=== PATIENT | female | born 1965 | race Caucasian/White ===

== ENCOUNTER → 2018-03-05 | Outpatient (CLI) | payer OTHER ==
[~2018-03-05] MED LIST: ASPIR 8181 MG PO; ATORVASTATIN CA20 MG PO; CLOPIDOGREL75 MG PO; LOSARTAN POTASS50 MG PO; METOPROLOL TART25 MG PO; VITAMIN C1000 M2 PO
--- NOTE | 2018-03-05 16:19 | Diagnostic Imaging Report ---
EXAM: CT Chest WITHOUT contrast / High Resolution INDICATION: Chest congestion, interstitial lung disease COMPARISON: None. TECHNIQUE: Chest was scanned utilizing a multidetector helical scanner without IV contrast. High Resolution technique utilized. IV CONTRAST: None COMPLICATIONS: None RADIATION DOSE: Total DLP: 1529 mGy*cm Estimated effective dose: (DLP x 0.015 x size factor) mSv CTDIvol has been reviewed. It is below the limits set by the Radiation Protocol Committee (RPC). Appropriate CT dose reduction techniques were utilized. FINDINGS: Lower Neck: No support lines or tubes. Visualized thyroid gland unremarkable. Heart and Great Vessels: The aorta and main pulmonary artery measure 33 and 24 mm. respectively. No pericardial effusion. Moderate coronary artery vascular calcifications with probable PCI LAD, poorly evaluated secondary to motion. Lymph Nodes: 11 x 5 mm level 6, 12 x 6 mm right level 2, 20 x 10 mm right level 4, 12 x 9 mm left level 4, 28 x 15 mm level 7. Probable left hilar lymph nodes, incompletely evaluated given lack of IV contrast. Lungs: Trachea and central bronchi are unremarkable. Moderate scattered peripheral bronchial wall thickening present. There is no pneumothorax or pleural effusion. Mild centrilobular and moderate to severe paraseptal emphysematous changes in the apices. Scattered mild areas of subpleural cyst are present in the mid lungs, difficult to delineate between paraseptal emphysematous change and subtle honeycombing. No significant honeycombing is identified in the lung bases, however. Scattered moderate reticulations are present. Mild groundglass opacities are scattered throughout the mid and lower lungs. Upper abdomen: Limited. Bones and Soft Tissues: No acute findings. IMPRESSION: 1. Mild centrilobular and moderate to severe paraseptal emphysematous changes in the upper lungs. 2. Scattered moderate reticular opacities with mild subpleural cystic changes predominantly in the midlungs. It is unclear whether this represents paraseptal emphysematous change or subtle honeycombing. Of note, no significant honeycombing is identified in the lung bases. Additionally, mild scattered groundglass opacities and areas of air trapping on expiratory images are present in the mid and lower lungs. Overall pattern raises question of chronic hypersensitivity pneumonitis superimposed on emphysematous changes. CPFE (Combined Pulmonary Fibrosis and Emphysema) or fibrotic NSIP could have similar imaging characteristics. Signed by: Dr. Abiel Reyna MD on 03/05/2018 4:16 PM
== END ==
LOC: CT 07:33
PROVIDERS: ATTEND Family Medicine
DX: R09.89 Other specified symptoms and signs involving the circulatory and respiratory systems (principal); R91.8 Other nonspecific abnormal finding of lung field
CPT/HCPCS: 71250

== ENCOUNTER → 2018-04-25 | Outpatient (CLI) | payer OTHER | LOC: MAMMO 12:12 | PROVIDERS: ATTEND Family Medicine | DX: Z12.31 Encounter for screening mammogram for malignant neoplasm of breast (principal) | CPT/HCPCS: 77067 ==

== ENCOUNTER → 2019-06-15 | Outpatient (CLI) | payer OTHER | LOC: MAMMO 08:31 | PROVIDERS: ATTEND Family Medicine | DX: Z12.31 Encounter for screening mammogram for malignant neoplasm of breast (principal) | CPT/HCPCS: 77067 ==

== ENCOUNTER 2019-10-04 15:45 | Observation (INO) | payer OTHER ==
[~2019-10-04] VITALS: Ht 152.4 cm; Wt 85.7 kg
[2019-10-04] MEDS ORDERED: ASPIRIN 81 MG CHEW TAB PO ONE (16:15)
[2019-10-04 16:16] LABS: BASOPHILS # (AUTO) 0.1 (0.0-0.1); BASOPHILS % 0.6 % (0.0-1.0); EOSINOPHILS # (AUTO) 0.2 (0.0-0.4); HEMATOCRIT 43.7 % (34.2-44.1); HEMOGLOBIN 14.2 g/dL (12.0-16.0); LYMPHOCYTES # (AUTO) 3.2 (1.0-3.2); LYMPHOCYTES % 39.4 % (18.0-39.1); MEAN CORPUSCULAR HEMOGLOBIN 31.7 pg (28-32); MEAN CORPUSCULAR HGB CONC 32.5 g/dL (31-35); MEAN CORPUSCULAR VOLUME 97.5 fL (81-99); MONOCYTES # (AUTO) 0.5 (0.2-0.8); MONOCYTES % 5.9 % (4.4-11.3); NEUTROPHILS # (AUTO) 4.2 (2.1-6.9); NEUTROPHILS % 51.8 % (38.7-80.0); PLATELET COUNT 261 x10e3/uL (140-360); RED BLOOD COUNT 4.48 x10e6/uL (3.6-5.1); RED CELL DISTRIBUTION WIDTH 13.7 % (11.7-14.4)
[2019-10-04 16:28] LABS: INR 0.83; PARTIAL THROMBOPLASTIN TIME 29.6 seconds (23.8-35.5); PROTHROMBIN TIME 11.9 seconds (11.9-14.5)
[2019-10-04 16:35] LABS: ALANINE AMINOTRANSFERASE 20 IU/L (0-55); ALBUMIN 3.7 g/dL (3.5-5.0); ALBUMIN/GLOBULIN RATIO 1.1 (0.8-2.0); ALKALINE PHOSPHATASE 66 IU/L (40-150); BLOOD UREA NITROGEN 13 mg/dL (7-26); BUN/CREATININE RATIO 16 (6-25); CALCIUM 9.3 mg/dL (8.4-10.2); CARBON DIOXIDE 25 mmol/L (22-29); CHLORIDE 106 mmol/L (98-107); CREATINE KINASE 151 IU/L (29-168); CREATININE, SERUM 0.82 mg/dL (0.57-1.11); EST GLOMERULAR FILTRATION RATE > 60 ML/MIN (60-); GLUCOSE 98 mg/dL (74-118); MAGNESIUM 1.9 MG/DL (1.3-2.1); SODIUM 140 mmol/L (136-145)
--- NOTE | 2019-10-04 16:54 | Emergency Department Note ---
History of Present Illnes History of Present Illness Chief Complaint: Chest Pain History of Present Illness This is a 53 year old female Patient states that she has had chest pain with shortness of breath for a few days, worse yesterday while mowing the lawn. No CP today but WALLIS persists. Patient states that she had a NC in 2010 resulting in one cardiac stent placement. Patient denies any other symptoms such as fever, cough, chills and body aches. Historian: Patient Additional Treatment FRONT MAKER: N/A Electric System Operator Required: No Onset (how long ago): day(s) (3) Location: left chest Quality: pressure Radiation: Reports non-radiation Severity: moderate Onset quality: gradual Timing of current episode: intermittent Progression: waxing and waning Chronicity: new Context: Reports other (had recent positive stress test by Dr Lieberman); Denies recent illness Relieving factors: none Exacerbating factors: other (exertion) Associated symptoms: Reports chest pain, Reports shortness of breath Treatments prior to arrival: aspirin Past Medical/Family History Physician Review I have reviewed the patient's past medical and family history. Any updates have been documented here. Past Medical History Recent Fever: No Clinical Suspicion of Infectio: No New/Unexplained Change in Ment: No Past Medical History: Hypertension, NC, Hyperlipedemia Other Medical History: lung fibrosis Past Surgical History: Appendectomy Other Surgery: Cardiac stent LAD Social History Smoking Cessation: Current every day smoker Counseling Performed: Yes Alcohol Use: Social Any Illegal Drug Use: No TB Exposure/Symptoms: No Physically hurt or threatened: No Family History Family history of heart diseas: Yes Other Last Tetanus: utd Any Pre-Existing Lines (PICC,: No Is patient up to date on immun: Yes Last Flu: utd Last Pneumovax: utd Review of Systems Review of Systems Constitutional: Reports no symptoms EENTM: Reports no symptoms Cardiovascular: Reports as per HPI, Reports chest pain Respiratory: Reports as per HPI, Reports dyspnea on exertion Gastrointestinal: Reports no symptoms Genitourinary: Reports no symptoms Musculoskeletal: Reports no symptoms Integumentary: Reports no symptoms Neurological: Reports no symptoms Psychological: Reports no symptoms Endocrine: Reports no symptoms Hematological/Lymphatic: Reports no symptoms Physical Exam Related Data Allergies: Coded Allergies: Penicillins (Verified Allergy, Unknown, RED STREAK ON ARM, 03/05/18) Uncoded Allergies: SULFA (Allergy, Unknown, 03/05/18) Triage Vital Signs Vital Signs Date Time Temp Pulse Resp B/P (MAP) Pulse Ox O2 Delivery O2 Flow Rate FiO2 10/04/19 15:47 97.3 86 18 103/67 97 Vital signs reviewed: Yes Physical Exam CONSTITUTIONAL Constitutional: Present well-developed, Present well-nourished HENT HENT: Present normocephalic, Present atraumatic, Present oropharynx clear/moist, Present nose normal HENT L/R: Present left ext ear normal, Present right ext ear normal EYES Eyes: Reports PERRL, Reports conjunctivae normal NECK Neck: Present ROM normal PULMONARY Pulmonary: Present rales (bibasilar) CARDIOVASCULAR Cardiovascular: Present regular rhythm, Present heart sounds normal, Present capillary refill normal, Present normal rate GASTROINTESTINAL Abdominal: Present soft, Present nontender, Present bowel sounds normal GENITOURINARY Genitourinary: Present exam deferred SKIN Skin: Present warm, Present dry MUSCULOSKELETAL Musculoskeletal: Present ROM normal, Present edema (trace bilateral LE's) NEUROLOGICAL Neurological: Present alert, Present oriented x 3, Present no gross motor or sensory deficits PSYCHOLOGICAL Psychological: Present mood/affect normal, Present judgement normal Results Laboratory Result Diagram: 10/04/19 1550 10/04/19 1550 Laboratory Laboratory Tests Test 10/04/19 15:50 White Blood Count 8.00 x10e3/uL (4.8-10.8) Red Blood Count 4.48 x10e6/uL (3.6-5.1) Hemoglobin 14.2 g/dL (12.0-16.0) Hematocrit 43.7 % (34.2-44.1) Mean Corpuscular Volume 97.5 fL (81-99) Mean Corpuscular Hemoglobin 31.7 pg (28-32) Mean Corpuscular Hemoglobin Concent 32.5 g/dL (31-35) Red Cell Distribution Width 13.7 % (11.7-14.4) Platelet Count 261 x10e3/uL (140-360) Neutrophils (%) (Auto) 51.8 % (38.7-80.0) Lymphocytes (%) (Auto) 39.4 % (18.0-39.1) Monocytes (%) (Auto) 5.9 % (4.4-11.3) Eosinophils (%) (Auto) 2.0 % (0.0-6.0) Basophils (%) (Auto) 0.6 % (0.0-1.0) Neutrophils # (Auto) 4.2 (2.1-6.9) Lymphocytes # (Auto) 3.2 (1.0-3.2) Monocytes # (Auto) 0.5 (0.2-0.8) Eosinophils # (Auto) 0.2 (0.0-0.4) Basophils # (Auto) 0.1 (0.0-0.1) Absolute Immature Granulocyte (auto 0.02 x10e3/uL (0-0.1) Prothrombin Time 11.9 seconds (11.9-14.5) Prothromb Time International Ratio 0.83 Activated Partial Thromboplast Time 29.6 seconds (23.8-35.5) Sodium Level 140 mmol/L (136-145) Potassium Level 4.0 mmol/L (3.5-5.1) Chloride Level 106 mmol/L (98-107) Carbon Dioxide Level 25 mmol/L (22-29) Anion Gap 13.0 mmol/L (8-16) Blood Urea Nitrogen 13 mg/dL (7-26) Creatinine 0.82 mg/dL (0.57-1.11) Estimat Glomerular Filtration Rate > 60 ML/MIN (60-) BUN/Creatinine Ratio 16 (6-25) Glucose Level 98 mg/dL (74-118) Calcium Level 9.3 mg/dL (8.4-10.2) Magnesium Level 1.9 MG/DL (1.3-2.1) Total Bilirubin 0.5 mg/dL (0.2-1.2) Aspartate Amino Transf (AST/SGOT) 17 IU/L (5-34) Alanine Aminotransferase (ALT/SGPT) 20 IU/L (0-55) Alkaline Phosphatase 66 IU/L (40-150) Creatine Kinase 151 IU/L (29-168) Total Protein 7.0 g/dL (6.5-8.1) Albumin 3.7 g/dL (3.5-5.0) Globulin 3.3 g/dL (2.3-3.5) Albumin/Globulin Ratio 1.1 (0.8-2.0) Lab results reviewed: Yes Imaging Imaging results reviewed: Yes Impressions Procedure: [id number] DX/CHEST SINGLE (PORTABLE) Exam Date: 10/04/19 Exam Time: 1625 REPORT STATUS: Signed EXAMINATION: CHEST SINGLE (PORTABLE) INDICATION: Chest pain. COMPARISON: None FINDINGS: TUBES and LINES: None. LUNGS: Lungs are well inflated. Emphysematous changes of the lungs. There are patchy opacities in the bilateral lower lung zones. PLEURA: No pleural effusion or pneumothorax. HEART AND MEDIASTINUM: The cardiomediastinal silhouette is unremarkable. There are atherosclerotic calcifications within the aorta. BONES AND SOFT TISSUES: No acute osseous lesion. Soft tissues are unremarkable. UPPER ABDOMEN: No free air under the diaphragm. IMPRESSION: Patchy lower lung zone opacities may represent pneumonia in the appropriate clinical setting. Recommend follow-up chest radiograph in 6-8 weeks to assess for resolution. Signed by: Dr. Roman Manley MD on 10/04/2019 5:04 PM Procedures 12 Lead ECG Interpretation ECG Interpretation : ECG: ECG 1 Electric System Operator: Interpreted by ED physician Date: Oct 04, 2019 Time: 15:46 Rhythm: sinus rhythm Rate: normal (81) QRS axis: normal ST segments normal: Yes T waves normal: Yes Clinical Impression: normal ECG Assessment & Plan Medical Decision Making MDM known CAD with CP/WALLIS - check CBC, CHEM'S, CARDIACS, ECG, BNP, CXR - R/O STEMI/NSTEMI, CHF, ELECTROLYTE ABNL, PNEUMONIA Reassessment Reassessment ADMIT - SPOKE WITH DR LIEBERMAN - PLANS FOR CATH TOMORROW Assessment & Plan Final Impression: (1) Unstable angina (2) Chest pain (3) Dyspnea Depart Disposition: ADMITTED Last Vital Signs Date Time Temp Pulse Resp B/P (MAP) Pulse Ox O2 Delivery O2 Flow Rate FiO2 10/04/19 16:09 98.1 77 18 103/57 99 Home Meds Reported Medications Aspirin (ASPIR 81) 81 Mg Tablet.dr, 81 MG PO DAILY 02/24/15 Ascorbic Acid (VITAMIN C) 1,000 Mg Tablet.er, 1000 MG PO DAILY 02/24/15 Atorvastatin Calcium (ATORVASTATIN CALCIUM) 20 Mg Tablet, 20 MG PO DAILY, TAB 02/24/15 Metoprolol Tartrate (METOPROLOL TARTRATE) 25 Mg Tablet, 25 MG PO DAILY, TAB 02/24/15 Clopidogrel Bisulfate (CLOPIDOGREL) 75 Mg Tablet, 75 MG PO DAILY, TAB 02/24/15 Losartan Potassium (LOSARTAN POTASSIUM) 50 Mg Tablet, 50 MG PO DAILY 02/24/15 Medications in the ED Aspirin 81 mg PRN ONCE PO ; Start 10/04/19 at 16:15; Stop 10/04/19 at 16:16; Status DC BING SHIELDS MD Oct 04, 2019 16:54
--- NOTE | 2019-10-04 17:07 | Diagnostic Imaging Report ---
EXAMINATION: CHEST SINGLE (PORTABLE) INDICATION: Chest pain. COMPARISON: None FINDINGS: TUBES and LINES: None. LUNGS: Lungs are well inflated. Emphysematous changes of the lungs. There are patchy opacities in the bilateral lower lung zones. PLEURA: No pleural effusion or pneumothorax. HEART AND MEDIASTINUM: The cardiomediastinal silhouette is unremarkable. There are atherosclerotic calcifications within the aorta. BONES AND SOFT TISSUES: No acute osseous lesion. Soft tissues are unremarkable. UPPER ABDOMEN: No free air under the diaphragm. IMPRESSION: Patchy lower lung zone opacities may represent pneumonia in the appropriate clinical setting. Recommend follow-up chest radiograph in 6-8 weeks to assess for resolution. Signed by: Dr. Roman Manley MD on 10/04/2019 5:04 PM
[2019-10-04] MEDS ORDERED: ONDANSETRON HCL INJ 2MG/ML 2ML 2 MG/ML VIAL IV PRN (17:30)
[2019-10-04] MEDS ORDERED: MORPHINE SULFATE 2 MG/ML SYR 1ML IV PRN (17:30)
[2019-10-04] MEDS ORDERED: ENOXAPARIN SODIUM INJ 100 MG/ML SYR SC NR (17:30)
[2019-10-04] MEDS ORDERED: NITROGLYCERIN 0.4 MG SUBL SL PRN (17:30)
[2019-10-04] MEDS: METOPROLOL TARTRATE 25 MG TAB PO SCH (20:07)
[2019-10-04] MEDS: FAMOTIDINE 20 MG/2 ML VIAL IV SCH (21:00)
--- NOTE | 2019-10-05 01:18 | NUR ---
Covid-19 test results negative per lab @0114
[2019-10-05 02:11] VITALS: BP 97/61
[2019-10-05 02:43] VITALS: BP 132/74
[2019-10-05 04:00] VITALS: BP 105/68
[2019-10-05] MEDS: METOPROLOL TARTRATE 25 MG TAB PO SCH ×3 (06:00→12:44)
[2019-10-05 06:46] LABS: BASOPHILS # (AUTO) 0.1 (0.0-0.1); BASOPHILS % 0.6 % (0.0-1.0); EOSINOPHILS # (AUTO) 0.2 (0.0-0.4); EOSINOPHILS % 2.6 % (0.0-6.0); HEMOGLOBIN 13.5 g/dL (12.0-16.0); LYMPHOCYTES # (AUTO) 3.9 (1.0-3.2); LYMPHOCYTES % 49.3 % (18.0-39.1); MEAN CORPUSCULAR HEMOGLOBIN 32.1 pg (28-32); MEAN CORPUSCULAR HGB CONC 32.9 g/dL (31-35); MEAN CORPUSCULAR VOLUME 97.6 fL (81-99); MONOCYTES # (AUTO) 0.4 (0.2-0.8); MONOCYTES % 5.3 % (4.4-11.3); NEUTROPHILS # (AUTO) 3.3 (2.1-6.9); NEUTROPHILS % 41.8 % (38.7-80.0); PLATELET COUNT 238 x10e3/uL (140-360); RED CELL DISTRIBUTION WIDTH 13.9 % (11.7-14.4)
[2019-10-05 07:07] LABS: ALANINE AMINOTRANSFERASE 20 IU/L (0-55); ALBUMIN 3.2 g/dL (3.5-5.0); ANION GAP 13.2 mmol/L (8-16); BLOOD UREA NITROGEN 13 mg/dL (7-26); CALCIUM 8.9 mg/dL (8.4-10.2); CARBON DIOXIDE 24 mmol/L (22-29); CHLORIDE 106 mmol/L (98-107); CHOL/HDL RATIO 5.4 (3.0-3.6); CHOLESTEROL 135 MD/DL (0-199); GLUCOSE 93 mg/dL (74-118); HDL CHOLESTEROL 25 MG/DL (40-60); POTASSIUM 4.2 mmol/L (3.5-5.1); SODIUM 139 mmol/L (136-145)
--- NOTE | 2019-10-05 07:07 | NUR ---
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
[2019-10-05 07:08] LABS: CREATINE KINASE 123 IU/L (29-168)
[2019-10-05] MEDS ORDERED: HEPARIN SOD (PORCINE) 1000 UNIT/ML 30ML ONE (07:22)
[2019-10-05] MEDS ORDERED: LIDOCAINE HCL 2% LOCAL 20 ML VIAL ONE (07:22)
[2019-10-05] MEDS ORDERED: MIDAZOLAM HCL 2 MG/2 ML VIAL ONE ×2 (07:22→07:56)
[2019-10-05] MEDS ORDERED: FENTANYL CITRATE/PF 100MCG/2 ML INJ ONE (07:22)
[2019-10-05] MEDS ORDERED: HEPARIN SOD/SOD CHLORIDE 2,000 ML ONE (07:23)
[2019-10-05] MEDS ORDERED: IOPAMIDOL 370 MG/ML 200 ML INFUS..BTL INJ ONE (07:23)
[2019-10-05] MEDS ORDERED: SODIUM CHLORIDE 0.9% 1000ML 1,000 ML ONE (07:23)
[2019-10-05] MEDS ORDERED: NITROGLYCERIN/D5W 200 MCG/ML 0 ML ONE (07:23)
[2019-10-05 07:32] LABS: ALKALINE PHOSPHATASE 54 IU/L (40-150); BUN/CREATININE RATIO 17 (6-25); CREATININE, SERUM 0.81 mg/dL (0.57-1.11); EST GLOMERULAR FILTRATION RATE > 60 ML/MIN (60-)
--- NOTE | 2019-10-05 08:20 | NUR ---
PT BACK IN ROOM AFTER PROCEDURE AWARE OF KEEPING LEG STRAIGHT TILL 1020. BP STABLE. DRESSING CL&I TO RT GROIN AREA.
--- NOTE | 2019-10-05 08:26 | History and Physical ---
CHIEF COMPLAINT: Chest pain. HISTORY OF PRESENT ILLNESS: Ms. Durand is a 53-year-old female with a history of angina. She had a stress test done as an outpatient, which showed moderate anterior apical ischemia. She was being scheduled for an outpatient heart catheterization. However, she started experiencing increasing chest pain and shortness of breath and presented to the [facility] ER. At presentation, she was hemodynamically stable. Chest pain was resolved with nitroglycerin, aspirin, and heparin. Her EKG showed new ST depression, which also resolved with her resolution of symptoms. Initial set of cardiac enzymes are negative. PAST MEDICAL HISTORY: Hypertension. SOCIAL HISTORY: The patient does not smoke or drink. ALLERGIES: PENICILLIN AND SULFA. REVIEW OF SYSTEMS: Negative except as dictated in History of Present Illness. PHYSICAL EXAMINATION: VITAL SIGNS: Afebrile. Heart rate 78, blood pressure is 98/55, O2 sats 100%. CARDIOVASCULAR: Regular rhythm. No murmurs or gallops. LUNGS: Clear to auscultation bilaterally. ABDOMEN: Soft. Bowel sounds heard adequately. EXTREMITIES: Pedal pulses are 2+. 1+ edema. NEUROLOGIC: Nonfocal. The patient is alert, oriented, no acute distress. DIAGNOSTIC DATA: EKG shows sinus rhythm with a resolving ST-segment depression. Cardiac enzymes are negative. Remaining labs reviewed. ASSESSMENT: Unstable angina with abnormal SPECT study. RECOMMENDATIONS: Anticoagulation. Heparin should continue. Aspirin has been added to the medical regimen along with a beta bogdan. Cardiac catheterization and possible intervention as indicated. The risks, benefits, and alternatives of this procedure were discussed with the patient. She is agreeable for the same. MD KAVITA Bobo/YADIELL /[id number]
--- NOTE | 2019-10-05 08:31 | Operative Report ---
DATE OF PROCEDURE: 10/05/2019 SURGEON: Pipo Avendaño MD INDICATION: 1. Coronary artery disease, abnormal stress test. 2. Unstable angina. COMPLICATIONS: None. RECOMMENDATIONS: Consideration for ICD placement. Optimal medical therapy for ischemic cardiomyopathy. PROCEDURES PERFORMED: 1. Conscious sedation administration, hemodynamic and neurological monitoring and recovery by cath level RN, supervision by , 35 minutes. 2. Left heart catheterization, selective coronary angiography. 3. Left ventriculography for deployment of right groin Mynx closure device. DESCRIPTION OF PROCEDURE: Access obtained in the right femoral artery. A 6-Pashto sheath was placed. Coronary angiography demonstrated patent left main, left anterior descending artery stent was widely patent. Mid and distal left anterior descending artery had diffuse disease and only a 1.5 mm vessel. Right coronary artery and circumflex artery had mild 20% to 30% stenosis. LV end-diastolic pressure was elevated at 26. LV ejection fraction 35% with anteroapical dyskinesis. No gradient across the aortic valve on pullback. Right groin repaired using Mynx closure device. The patient was transferred to the floor in stable condition. Pipo Avendaño MD KSB/MODL /[id number]
[2019-10-05 08:55] VITALS: BP 95/68
[2019-10-05 08:57] LABS: LDL CHOLESTEROL 86 MG/DL (60-130); TRIGLYCERIDES 118 MG/DL (0-149)
[2019-10-05] MEDS ORDERED: ASPIRIN 81 MG CHEW TAB PO SCH (09:00)
[2019-10-05] MEDS ORDERED: CLOPIDOGREL BISULFATE 75 MG TAB PO SCH ×2 (09:00)
[2019-10-05] MEDS ORDERED: ASPIRIN 81 MG ENTERIC COATED PO SCH (09:00)
[2019-10-05] MEDS ORDERED: ASCORBIC ACID 500 MG TAB PO SCH (09:00)
[2019-10-05] MEDS: FAMOTIDINE 20 MG/2 ML VIAL IV SCH (10:00)
[2019-10-05] MEDS: LOSARTAN POTASSIUM 25 MG TAB PO SCH ×2 (10:00→12:44)
[2019-10-05 11:50] VITALS: BP 108/67
[2019-10-05] MEDS ORDERED: ATORVASTATIN 20 MG TAB PO SCH (21:00)
== END 2019-10-05 16:45 | disposition home or self-care (01) ==
LOC: ER 15:45 → ERHOLD 17:27 → MED/SURG3 10-05 02:13
PROVIDERS: ADMIT Internal Medicine Interventional Cardiology; ATTEND Internal Medicine Interventional Cardiology
DX: I25.110 Atherosclerotic heart disease of native coronary artery with unstable angina pectoris (principal); Z11.59 Encounter for screening for other viral diseases; I25.2 Old myocardial infarction; E78.5 Hyperlipidemia, unspecified; I10 Essential (primary) hypertension; Z88.0 Allergy status to penicillin; Z88.2 Allergy status to sulfonamides
CPT/HCPCS: 36415 ×2; 71045; 80053 ×2; 80061; 82550 ×2; 82553 ×2; 83735; 83880; 84484 ×2; 84702; 85025 ×2; 85610; 85730; 87635; 93005; 93458; 99284; C1760; C1769; G0378 ×2; J2001; J2250; J3010; J7030; Q9967; 99152; J1644

== ENCOUNTER → 2020-08-22 | Outpatient (CLI) | payer OTHER | LOC: MAMMO 08:02 | PROVIDERS: ATTEND Family Medicine | DX: Z12.31 Encounter for screening mammogram for malignant neoplasm of breast (principal) | CPT/HCPCS: 77067 ==

== ENCOUNTER → 2020-10-07 | Outpatient (CLI) | payer OTHER | LOC: CT 07:33 | PROVIDERS: ATTEND Family Medicine | DX: M25.532 Pain in left wrist (principal); R93.7 Abnormal findings on diagnostic imaging of other parts of musculoskeletal system ==